=== PATIENT | male | born 1990 | race American Indian/Alaskan Native ===

== ENCOUNTER 2016-09-03 17:34 | Emergency (ER) | payer OTHER ==
[2016-09-03 18:21] VITALS: BP 133/87
--- NOTE | 2016-09-03 20:51 | Emergency Department Report ---
Entered by LUCA HUA, acting as scribe for ESSIE GRAFF NP. ED ENT HPI - General Chief complaint: Dental/Oral Stated complaint: SEVERE JAW/TOOTH PAIN/LARGE LUMP IN JAW Time Seen by Provider: 09/03/16 20:11 Source: patient Mode of arrival: Ambulatory Limitations: No Limitations - History of Present Illness Initial comments: 26 y/o male presents to the ED c/o abscess to left upper tooth x 4 days. Associated symptoms include swelling and pain but he denies fever and chills. Pain is describe as a pressure and 10/10 on a severity scale. No alleviating or aggravating factors. [place]. complaint: other (abcess to left upper tooth) Onset/Timin -: days(s) Location: tooth # (13), other (left upper tooth) Severity: severe Severity scale (0 -10): 6 Quality: sharp, other (pressure) Consistency: constant Improves with: none Worsens with: none Context- Dental: other (broken tooth) Associated Symptoms: toothache, other (swellling/pain, no fever/chills) - Related Data Previous Rx's Medication Instructions Recorded Last Taken Type Amoxicillin [Trimox CAP] 500 mg PO Q8H #30 capsule 09/03/16 Unknown Rx Chlorhexidine Mouthwash [Peridex] 15 ml MM BID #240 ml 09/03/16 Unknown Rx traMADol [Ultram] 50 mg PO Q6HR PRN #20 tablet 09/03/16 Unknown Rx Allergies Allergy/AdvReac Type Severity Reaction Status Date / Time No Known Allergies Allergy Unverified 09/03/16 18:21 ED Dental HPI - General Chief complaint: Dental/Oral Stated complaint: SEVERE JAW/TOOTH PAIN/LARGE LUMP IN JAW Time Seen by Provider: 09/03/16 20:05 Source: patient Mode of arrival: Ambulatory Limitations: No Limitations - History of Present Illness MD complaint: other (abcess to left upper tooth) Onset/Timin -: days(s) Severity: severe Quality: other (pressure) Consistency: constant Improves with: none Worsens with: none Context- Dental: other (broken tooth) - Related Data Previous Rx's Medication Instructions Recorded Last Taken Type Amoxicillin [Trimox CAP] 500 mg PO Q8H #30 capsule 09/03/16 Unknown Rx Chlorhexidine Mouthwash [Peridex] 15 ml MM BID #240 ml 09/03/16 Unknown Rx traMADol [Ultram] 50 mg PO Q6HR PRN #20 tablet 09/03/16 Unknown Rx Allergies Allergy/AdvReac Type Severity Reaction Status Date / Time No Known Allergies Allergy Unverified 09/03/16 18:21 ED Review of Systems Comment: All other systems reviewed and negative Constitutional: denies: chills, fever Eyes: denies: eye pain, eye discharge, vision change ENT: dental pain, other (swelling and abcess to left upper tooth) Respiratory: denies: cough, shortness of breath, wheezing Cardiovascular: denies: chest pain, palpitations Endocrine: no symptoms reported Gastrointestinal: denies: abdominal pain, nausea, diarrhea Genitourinary: denies: urgency, dysuria Musculoskeletal: denies: back pain, joint swelling, arthralgia Skin: denies: rash, lesions Neurological: denies: headache, weakness, paresthesias Psychiatric: denies: anxiety, depression Hematological/Lymphatic: denies: easy bleeding, easy bruising ED Past Medical Hx - Past Medical History Previous Medical History?: No - Surgical History Past Surgical History?: No - Social History Smoking Status: Current Every Day Smoker Substance Use Type: Marijuana - Medications Home Medications: Home Medications Medication Instructions Recorded Confirmed Last Taken Type Amoxicillin [Trimox CAP] 500 mg PO Q8H #30 capsule 09/03/16 Unknown Rx Chlorhexidine Mouthwash [Peridex] 15 ml MM BID #240 ml 09/03/16 Unknown Rx traMADol [Ultram] 50 mg PO Q6HR PRN #20 tablet 09/03/16 Unknown Rx ED Physical Exam - General Limitations: No Limitations General appearance: alert, in no apparent distress - Head Head exam: Present: atraumatic, normocephalic, normal inspection - Eye Eye exam: Present: normal appearance, PERRL, EOMI Pupils: Present: normal accommodation - ENT ENT exam: Present: normal exam, normal orophraynx, mucous membranes moist, TM's normal bilaterally, normal external ear exam, other (abcess to left upper tooth #13 with focal abscess no trismus uvula mildline airway is patent ) - Neck Neck exam: Present: normal inspection, meningismus, full ROM. Absent: tenderness, lymphadenopathy, thyromegaly - Respiratory Respiratory exam: Present: normal lung sounds bilaterally. Absent: respiratory distress - Cardiovascular Cardiovascular Exam: Present: regular rate, normal rhythm. Absent: systolic murmur, diastolic murmur, rubs, gallop - GI/Abdominal GI/Abdominal exam: Present: soft, normal bowel sounds. Absent: tenderness, guarding, rebound - Rectal Rectal exam: Present: deferred - Extremities Exam Extremities exam: Present: normal inspection, full ROM. Absent: tenderness, normal capillary refill, pedal edema, joint swelling, calf tenderness - Back Exam Back exam: Present: normal inspection, full ROM. Absent: tenderness, CVA tenderness (R), CVA tenderness (L), muscle spasm, paraspinal tenderness, vertebral tenderness, rash noted - Neurological Exam Neurological exam: Present: alert, oriented X3 - Psychiatric Psychiatric exam: Present: normal affect, normal mood - Skin Skin exam: Present: warm, dry, intact, normal color. Absent: rash ED Course Vital Signs 09/03/16 18:17 Temperature 99 F Pulse Rate 89 Respiratory 20 Rate Blood Pressure 133/87 [Left] O2 Sat by Pulse 100 Oximetry - Procedure Description Procedures done: abscess drain 18 g needle aspiratio of focal abscess #13 , output purulent modate amount left open , pain improved with same, pt tolerted with minimal distress, bleeding is controled - Nerve Block Consent Obtained: verbal consent Time Out Performed: Yes Local Anesthetic Used: Lidocaine 1% Amount of anesthesia used: 2 Side: left Nerve Blocks: other (psa) Intraoral Nerve Block: infraorbital, mental Complications: none Patient Tolerated Procedure: well, no complications Additional Comments: pt tolerated with minimal distress ED Medical Decision Making - Medical Decision Making pt rpesents for dental abscess same for I&D at this time following succesful dental block, see procedure note , pt tolerated same with minimal distress , dc to self with rx for amoxicillin , peridex, and tramadol pt will follow up with [facility] on monday for evaluation and extraction pt verbalized agreement and understanding of discharge plan. ED Disposition Clinical Impression: Dental abscess, Infected dental carries Disposition: DC-01 TO HOME OR SELFCARE Is pt being admited?: No Does the pt Need Aspirin: No Condition: Good Instructions: Dental Abscess (ED), Toothache (ED) Prescriptions: Amoxicillin [Trimox CAP] 500 mg PO Q8H #30 capsule Chlorhexidine Mouthwash [Peridex] 15 ml MM BID #240 ml traMADol [Ultram] 50 mg PO Q6HR PRN #20 tablet PRN Reason: Pain Referrals: PRIMARY CARE,MD [Primary Care Provider] - 3-5 Days Forms: Work/School Release Form(ED) Time of Disposition: 20:50 This documentation as recorded by the JAVID antonio ELIZABETH,accurately reflects the service I personally performed and the decisions made by , ESSIE GRAFF, [employer].
== END 2016-09-03 21:05 | disposition home or self-care (01) ==
LOC: ED 17:34
DX: K04.7 Periapical abscess without sinus (principal); F17.200 Nicotine dependence, unspecified, uncomplicated